=== PATIENT | male | born 1945 | race Caucasian/White ===

== ENCOUNTER → 2017-11-24 | Outpatient (CLI) | payer OTHER ==
[~2017-11-24] MED LIST: ACC10 PO; ASPEC81 PO; CALCTAB5 PO; DVN160125 PO; HYT/2 PO; MGN PO; MULT-506 PO; OMEG10007 PO; POTA10CA28 PO; TRIA0.1C20; VITA400C15 PO
== END ==
LOC: C.LABSPEC 17:11
PROVIDERS: ATTEND Urology
DX: R35.0 Frequency of micturition (principal); R39.15 Urgency of urination